=== PATIENT | male | born 1985 | race Caucasian/White ===

== ENCOUNTER → 2025-05-20 11:20 | Outpatient (BNVA) | payer OTHER, SELFPAY | PROVIDERS: Visit Provider Nurse Practitioner | DX: R22.42 Localized swelling, mass and lump, left lower limb (principal) | CPT/HCPCS: 73562 ==

== ENCOUNTER → 2025-06-22 09:49 | Outpatient (BNVA) | payer OTHER, SELFPAY | PROVIDERS: Visit Provider Specialist | DX: M25.562 Pain in left knee (principal); M25.462 Effusion, left knee | CPT/HCPCS: 73560; 73565 ==